=== PATIENT | male | born 1965 | race Caucasian/White ===

== ENCOUNTER → 2017-01-03 | Outpatient (CLI) | payer OTHER ==
[~2017-01-03] MED LIST: CETI10TA84 PO
[2017-01-03 10:30] LABS: BASO % 0.5 %; BASO ABS # 0.03 K/uL (0-0.2); COMPLETE YES; EOS % 6.4 %; HEMATOCRIT 43.9 % (42-52); IG% 0.5 %; LYMPH % 25.6 %; LYMPH ABS # 1.52 K/uL (1.2-3.4); MEAN CELL VOLUME 84.4 fL (80-100); MEAN CORPUSCULAR HGB CONC 35.5 g/dl (32-36); MEAN PLATELET VOLUME 9.6 fL (7.4-10.4); MONO % 9.3 %; NEUT % 57.7 %; PLATELET COUNT 205 K/uL (130-400); WHITE BLOOD COUNT 5.93 K/uL (4.8-10.8)
[2017-01-03 10:45] LABS: ALT/SGPT 56 U/L (12-78); BLOOD UREA NITROGEN 22 mg/dl (7-18); BUN/CREATININE RATIO 25.5 (10-20); CARBON DIOXIDE 26 mmol/L (21-32); CHLORIDE 109 mmol/L (98-107); CREATININE 0.86 mg/dl (0.60-1.40); GLUCOSE 103 mg/dl (70-99); SODIUM 143 mmol/L (136-145)
[2017-01-03 10:48] LABS: ALB/GLOB RATIO 1.5 (0.9-2); ALKALINE PHOSPHATASE 86 U/L (45-117); AST/SGOT 24 U/L (15-37)
[2017-01-03 13:18] LABS: LYME DISEASE AB IGG NEG (NEG)
[2017-01-03 13:22] LABS: LYME DISEASE AB IGM NEG (NEG)
== END | disposition home or self-care (01) ==
LOC: C.LABBC 08:24
PROVIDERS: ATTEND Physician Assistant Medical
DX: R53.83 Other fatigue (principal); L54 Erythema in diseases classified elsewhere